=== PATIENT | male | born 1965 | race African-American/Black ===

== ENCOUNTER 2023-10-28 23:09 | Inpatient (IN) | payer OTHER ==
[2023-10-28 23:31] VITALS: BMI 19.5
[2023-10-28] MEDS ORDERED: LOPERAMIDE HCL 2 MG CAPSULE PO PRN (23:39)
[2023-10-28] MEDS ORDERED: BENZOCAINE/MENTHOL (CHLORASEPTIC ) LOZENGE MM PRN (23:39)
[2023-10-28] MEDS ORDERED: IBUPROFEN 600 MG TABLET (FP) PO PRN (23:39)
[2023-10-28] MEDS ORDERED: BISMUTH SUBSALICYLATE 524 MG/30 ML PO PRN (23:39)
[2023-10-28] MEDS ORDERED: NICOTINE POLACRILEX 2 MG GUM BUC PRN (23:39)
[2023-10-28] MEDS ORDERED: METHOCARBAMOL 500 MG TABLET PO PRN (23:39)
[2023-10-28] MEDS ORDERED: ONDANSETRON *ODT* 4 MG TABLET SL PRN (23:39)
[2023-10-28] MEDS ORDERED: guaiFENesin 600 MG TABLET.ER (FP) PO PRN (23:39)
[2023-10-28] MEDS ORDERED: DICYCLOMINE HCL 10 MG CAPSULE PO PRN (23:39)
[2023-10-28] MEDS ORDERED: MAGNESIUM HYDROX 2400MG/30ML ORAL SUSPENSION 30 ML CUP PO PRN (23:39)
[2023-10-28] MEDS ORDERED: POLYETHYLENE GLYCOL (HEALTHYLAX) 3350 17 GM PACKET PO PRN (23:39)
[2023-10-28] MEDS ORDERED: BENZONATATE 200 MG CAPSULE PO PRN (23:39)
[2023-10-28] MEDS ORDERED: P-EPHED 60MG/TRIPROLIDI 2.5MG TABLET PO PRN (23:39)
[2023-10-28] MEDS ORDERED: IBUPROFEN 400 MG TABLET (FP) PO PRN (23:39)
[2023-10-28] MEDS ORDERED: ACETAMINOPHEN 325 MG TABLET (FP) PO PRN (23:39)
[2023-10-28] MEDS ORDERED: MAG HYDROX/AL HYDROX/SIMETH 30 ML UNIT-DOSE CUP PO PRN (23:39)
[2023-10-29] MEDS: PRENATAL VITAMINS W/ FOLIC ACID TABLET (FP) PO SCH (09:56)
[2023-10-29] MEDS ORDERED: diazePAM 5 MG TABLET PO PRN (10:15)
[2023-10-29] MEDS: diazePAM 5 MG TABLET PO SCH ×2 (13:09→22:21)
[2023-10-29 14:03] LABS: POTASSIUM 4.2 mmol/L (3.5-5.1)
[2023-10-29 14:10] LABS: CALCIUM 8.4 mg/dL (8.5-10.1)
[2023-10-29 14:11] LABS: ALBUMIN 3.2 g/dl (3.4-5.0); BLOOD UREA NITROGEN 20.1 mg/dL (7-18)
[2023-10-29 14:13] LABS: CREATININE 0.7 mg/dL (0.55-1.3)
[2023-10-29 14:14] LABS: TOT PROT 5.8 g/dl (6.4-8.2)
[2023-10-29 14:15] LABS: BILIRUBIN,TOTAL 0.2 mg/dL (0.2-1)
[2023-10-29 14:16] LABS: HEMATOCRIT 39.4 % (35.4-49); HEMOGLOBIN 12.9 GM/dL (11.7-16.9); MCH 31.1 pg (25.7-33.7); MCHC 32.8 g/dl (32.0-35.9); MEAN CELL VOLUME 94.8 fl (80-96); MEAN PLT VOLUME 7.2 fl (7.5-11.1); PLATELET COUNT 271 10^3/uL (134-434); RBC 4.16 M/mm3 (4.00-5.60); RDW 13.4 % (11.9-15.9)
[2023-10-29] MEDS: MELATONIN 5 MG TABLETS PO SCH (22:21)
[2023-10-29] MEDS: THIAMINE HCL 100 MG TABLET (FP) PO SCH (22:21)
[2023-10-30] MEDS: diazePAM 5 MG TABLET PO SCH ×2 (05:19→17:46)
[2023-10-30] MEDS: PRENATAL VITAMINS W/ FOLIC ACID TABLET (FP) PO SCH (10:46)
[2023-10-30] MEDS: THIAMINE HCL 100 MG TABLET (FP) PO SCH (23:34)
[2023-10-30] MEDS: MELATONIN 5 MG TABLETS PO SCH (23:34)
[2023-10-31] MEDS ORDERED: diazePAM 5 MG TABLET PO ONE (06:00)
[2023-10-31 09:35] VITALS: BP 119/77; PULSE 64; RESP 18; TEMP 97.1
[2023-10-31] MEDS: PRENATAL VITAMINS W/ FOLIC ACID TABLET (FP) PO SCH (10:06)
== END 2023-10-31 10:35 | disposition other institution (70) | DRG 774 ==
LOC: YASAS 23:09 → Y6N 10-29 03:51
PROVIDERS: ADMIT Allergy & Immunology; ATTEND Allergy & Immunology
PROC: HZ2ZZZZ Detoxification Services for Substance Abuse Treatment (ICD-10-PCS; principal; 2023-10-29)
DX: F10.230 Alcohol dependence with withdrawal, uncomplicated (principal); F14.20 Cocaine dependence, uncomplicated; F17.210 Nicotine dependence, cigarettes, uncomplicated; I10 Essential (primary) hypertension; Z59.01 Sheltered homelessness
CPT/HCPCS: 36415; 80053; 85027; 86780; 87635